=== PATIENT | male | born 1960 | race African-American/Black ===

== ENCOUNTER 2018-10-23 08:02 | Emergency (ER) | payer SELFPAY ==
[~2018-10-23] VITALS: Ht 182.9 cm; Wt 77.3 kg
[~2018-10-23 08:02] MED LIST: ACYC800T PO; AMLO10TA6 PO; CARV12.511 PO; HYDR-2761 PO; LISI-334 PO; METO25TA4 PO
[2018-10-23] MEDS ORDERED: IPRATRPIUM/ALBUTEROL 0.5/2.5MG 3 ML NEBU. NEB ONE (08:15)
--- NOTE | 2018-10-23 08:21 | PHYS DOC ---
Past Medical History Past Medical History: Hypertension Past Surgical History: Other Additional Past Surgical Histo: Rt.knee,rt.rotator cuff,lt.achilles,bilat wrist Alcohol Use: Occasionally Drug Use: None Adult General Chief Complaint Chief Complaint: DIZZY/LIGHT HEADED HPI HPI 58-year-old male presents to ER via POV for complaints of productive cough and shortness of air. Patient reports he is also had intermittent dizziness for the past few days. Patient states he has been out of his blood pressure medicine for the past few days as he is waiting for his insurance to change so he can go into a primary care physician. Patient states he was seen at [facility] 2 weeks ago for similar symptoms. Patient states he has not checked his temperature however has felt warm. Patient states he has had white phlegm with chest congestion. Patient denies GI issues. He shouldn't states he feels he has had swelling in his feet as his bruits feel tight. Patient denies recent travel. Patient reports he smokes less than a pack of cigarettes per day. Review of Systems Review of Systems Constitutional: Denies checking his temp. but has felt warm Eyes: Denies change in visual acuity, redness, or eye pain [] HENT: Denies nasal congestion or sore throat [] Respiratory: Reports prod. cough and SOA Cardiovascular: Reports chest congestion GI: Denies abdominal pain, nausea, vomiting, bloody stools or diarrhea [] : Denies dysuria or hematuria [] Musculoskeletal: Denies back/neck pain. Chronic leg pain no acute changes Integument: Denies rash or skin lesions [] Neurologic: Denies headache, focal weakness or sensory changes. Reports intermittent dizziness All other systems were reviewed and found to be within normal limits, except as documented in this note. Current Medications Current Medications Current Medications Medications (Trade) Dose Ordered Sig/Tanya Start Time Stop Time Status Last Admin Dose Admin Albuterol/ Ipratropium (Duoneb) 3 ml 1X ONCE 10/23/18 08:15 10/23/18 08:18 DC 10/23/18 08:23 3 ML Amlodipine Besylate (Norvasc) 5 mg 1X ONCE 10/23/18 10:45 10/23/18 10:46 DC 10/23/18 10:57 5 MG Prednisone (Prednisone) 50 mg 1X ONCE 10/23/18 10:15 10/23/18 10:16 DC 10/23/18 10:28 50 MG Sodium Chloride 1,000 ml @ 1,000 mls/hr 1X ONCE 10/23/18 10:15 10/23/18 10:15 DC Allergies Allergies Allergies Coded Allergies Type Severity Reaction Last Updated Verified lisinopril Allergy Severe Swelling 10/16/16 Yes hydrochlorothiazide Allergy Intermediate 10/16/16 Yes Physical Exam Physical Exam Constitutional: Well developed, well nourished, no acute distress, non-toxic appearance. Steady gait HENT: Normocephalic, atraumatic, oropharynx moist, nose normal. [] Eyes: Pupils equal, conjunctiva normal, no discharge. [] Neck: Normal range of motion, no tenderness, supple, no stridor. [] Cardiovascular:Heart rate regular rhythm, no murmur [] Lungs & Thorax: Upper bilat. rhonchi- no wheezing- diminished in bases. Resp. equal/nonlabored. Speaking in full sentences Abdomen: Bowel sounds normal, soft, no tenderness, no masses, no pulsatile masses. [] Skin: Warm, dry, no erythema, no rash. [] Back: No tenderness, no CVA tenderness. [] Extremities: No tenderness, no cyanosis, no clubbing, ROM intact, no edema. [] Neurologic: Alert and oriented X 3, normal motor function, normal sensory function, no focal deficits noted. [] Psychologic: Affect normal, judgement normal, mood normal. [] Current Patient Data Vital Signs Vital Signs Date Time Temp Pulse Resp B/P (MAP) Pulse Ox O2 Delivery O2 Flow Rate FiO2 10/23/18 10:57 74 179/99 10/23/18 10:45 23 95 10/23/18 08:25 Room Air 10/23/18 08:09 98.3 98.3 Lab Values Laboratory Tests Test 10/23/18 08:40 10/23/18 09:50 White Blood Count 3.6 x10^3/uL (4.0-11.0) L Red Blood Count 4.70 x10^6/uL (4.30-5.70) Hemoglobin 13.9 g/dL (13.0-17.5) Hematocrit 41.0 % (39.0-53.0) Mean Corpuscular Volume 87 fL (79-100) Mean Corpuscular Hemoglobin 30 pg (25-35) Mean Corpuscular Hemoglobin Concent 34 g/dL (31-37) Red Cell Distribution Width 22.6 % (11.5-14.5) H Platelet Count 279 x10^3/uL (140-400) Neutrophils (%) (Auto) 54 % (31-73) Lymphocytes (%) (Auto) 29 % (24-48) Monocytes (%) (Auto) 15 % (0-9) H Eosinophils (%) (Auto) 1 % (0-3) Basophils (%) (Auto) 1 % (0-3) Neutrophils # (Auto) 1.9 x10^3uL (1.8-7.7) Lymphocytes # (Auto) 1.0 x10^3/uL (1.0-4.8) Monocytes # (Auto) 0.5 x10^3/uL (0.0-1.1) Eosinophils # (Auto) 0.0 x10^3/uL (0.0-0.7) Basophils # (Auto) 0.0 x10^3/uL (0.0-0.2) Platelet Estimate Adequate (ADEQUATE) Large Platelets Occ Polychromasia Slight Anisocytosis Slight Ovalocytes Occ Sodium Level 140 mmol/L (136-145) Potassium Level 3.5 mmol/L (3.5-5.1) Chloride Level 102 mmol/L (98-107) Carbon Dioxide Level 23 mmol/L (21-32) Anion Gap 15 (6-14) H Blood Urea Nitrogen 11 mg/dL (8-26) Creatinine 0.9 mg/dL (0.7-1.3) Estimated GFR (Cockcroft-Gault) 104.5 BUN/Creatinine Ratio 12 (6-20) Glucose Level 105 mg/dL (70-99) H Lactic Acid Level 1.1 mmol/L (0.4-2.0) Calcium Level 9.4 mg/dL (8.5-10.1) Total Bilirubin 0.5 mg/dL (0.2-1.0) Aspartate Amino Transferase (AST) 37 U/L (15-37) Alanine Aminotransferase (ALT) 26 U/L (16-63) Alkaline Phosphatase 68 U/L (46-116) Troponin I Quantitative < 0.017 ng/mL (0.000-0.055) PE-Dlr-O-Type Natriuretic Peptide 122 pg/mL (0-124) Total Protein 7.2 g/dL (6.4-8.2) Albumin 3.3 g/dL (3.4-5.0) L Albumin/Globulin Ratio 0.8 (1.0-1.7) L Urine Collection Type Unknown Urine Color Lennie Urine Clarity Clear Urine pH 6.0 Urine Specific [place] >=1.030 Urine Protein 30 mg/dL (NEG-TRACE) Urine Glucose (UA) Negative mg/dL (NEG) Urine Ketones (Stick) 15 mg/dL (NEG) Urine Blood Moderate (NEG) Urine Nitrite Negative (NEG) Urine Bilirubin Small (NEG) Urine Urobilinogen Dipstick 1.0 mg/dL (0.2 mg/dL) Urine Leukocyte Esterase Trace (NEG) Urine RBC 6-10 /HPF (0-2) Urine WBC Occ /HPF (0-4) Urine Squamous Epithelial Cells Few /LPF Urine Bacteria Few /HPF (0-FEW) Urine Hyaline Casts Moderate /HPF Urine Mucus Marked /LPF Laboratory Tests 10/23/18 08:40 Laboratory Tests 10/23/18 08:40 Microbiology 10/23/18 Blood Culture - Preliminary, Resulted NO GROWTH AFTER 3 DAYS 10/23/18 Urine Culture - Final, Complete 10/23/18 Urine Culture Result 1 (CARLITA) - Final, Complete Microbiology 10/23/18 Blood Culture - Preliminary, Resulted NO GROWTH AFTER 1 DAY 10/23/18 Urine Culture - Final, Complete 10/23/18 Urine Culture Result 1 (CARLITA) - Final, Complete EKG EKG EKG obtained 10/23/[address] Millard Compared to EKG from 10/16/16 similar in comparison Sinus rhythm Lt axis deviation Rate 78 Radiology/Procedures Radiology/Procedures PROCEDURE: CHEST PA & LATERAL Examination: CHEST PA LATERAL History: COUGH AND SOB Comparison/Correlation: 10/12/2016 AP view of the chest Findings: PA and lateral views of chest were obtained. Heart size and pulmonary vasculature are normal. There is no pneumothorax or pleural effusion. Discoid atelectasis about the minor fissure is present. Mild thickening of the minor fissure noted. Nondistended left upper quadrant small bowel loops are present. Impression: No infiltrate. Linear discoid atelectasis about the minor fissure. Mild thickening of the minor fissure. Electronically signed by: Cedric José MD (10/23/2018 9:40 AM) [id number] DICTATED and SIGNED BY: GIORGIO DICKINSON MD DATE: 10/23/18 0938 Course & Med Decision Making Course & Med Decision Making Pertinent Labs and Imaging studies reviewed. (See chart for details) 0935: On reevaluation patient had no improvement and lung sounds following DuoNeb treatment. Patient continues to have rhonchi bilateral upper lobes. Pt is in no visible distress with equal nonlabored respirations. Labs pending. Chest xray with no acute findings. Orthostatic BP/HRs obtained- pt's BP remained similar with position changes his HR did go from 70 in supine position to 82 standing with RN reporting pt reported feeling dizzy with position change lasting briefly. IV flds given. 1040: Patient was evaluated in the ER for cough and shortness of air- test results were discussed with pt. EKG with no acute ST elevation/STEMI and troponin <0.017 BNP 122; WBCs at 3.6 no bands- which he has had similar results in previous records. Patient's chest x-ray was negative for acute findings. Patient has remained stable and nontoxic in appearance. O2 sat 97% on room air with heart rate 85 respirations 18. Patient does continue to have rhonchi bilateral upper lobes with equal nonlabored respirations. Patient has been hypertensive as he has been out of his amlodipine 5 mg for the past few weeks. Last BP 200/108. Dose of his amlodipine will be provided while in the ER and patient will be provided with prescription. Patient was educated on need to establish primary care physician and remain on his blood pressure medications as prescribed. Smoking cessation was discussed. With patient being daily smoker will place patient on prescription for Augmentin for bronchitis. Patient encouraged to increase fluid intake as he did have ketones in his urine. Patient had moderate blood and his UA with 30 protein-patient advised he should have this rechecked with primary care physician. Patient denies any urinary symptoms. Education provided on signs and symptoms to return to ER for. Discharge instructions were discussed. Will provide clinic and physician referral information with discharge paperwork. Patient was given dose of prednisone and will be provided with prescription for 4 additional days to start tomorrow. At time of discharge blood pressure 179/99 heart rate 73 RR 18 O2 saturation 97 % on room air. Pt's case and plan of care was discussed with Dr. Fiona Dominguez Disclaimer Alberto Disclaimer This electronic medical record was generated, in whole or in part, using a voice recognition dictation system. Departure Departure Impression: Primary Impression: Upper respiratory infection Additional Impressions: Elevated blood pressure reading Cough Disposition: HOME, SELF-CARE Condition: STABLE Referrals: NO PCP (PCP) Patient Instructions: Cough, Adult, Managing Your High Blood Pressure, Upper Respiratory Infection, Adult Additional Instructions: Drink plenty of water. Avoid missing doses of your blood pressure medication and take as prescribed. It is important for you to establish a primary care physician to care for your blood pressure issues. You did have moderate blood in your urinalysis and proteins which should be rechecked by your primary care physician. Avoid smoking. Start prednisone prescription tomorrow as you were given dose while in the ER. Scripts Amlodipine Besylate (AMLODIPINE BESYLATE) 5 Mg Tablet 5 MG PO DAILY, #20 TAB 0 Refills Prov: JENNIFER BECKMAN APRN 10/23/18 Prednisone (PREDNISONE) 50 Mg Tablet 50 MG PO DAILY, #4 TAB 0 Refills Start on 10/24/18 Prov: JENNIFER BECKMAN APRN 10/23/18 Amoxicillin/Potassium Clav (AUGMENTIN 875-125 TABLET) 1 Each Tablet 1 TAB PO BID, #14 TAB 0 Refills Prov: JENNIFER BECKMAN APRN 10/23/18 Problem Qualifiers JENNIFER BECKMAN APRN Oct 23, 2018 08:21 JOHNATHAN MILLARD MD Oct 27, 2018 06:12
[2018-10-23 08:51] LABS: BASO % 1 % (0-3); EOS % 1 % (0-3); HEMOGLOBIN 13.9 g/dL (13.0-17.5); LYMPH % 29 % (24-48); MEAN CORPUSCULAR HEMOGLOBIN 30 pg (25-35); MEAN CORPUSCULAR HGB CONC 34 g/dL (31-37); MEAN CORPUSCULAR VOLUME 87 fL (79-100); MONO # 0.5 x10^3/uL (0.0-1.1); MONO % 15 % (0-9); NEUT # 1.9 x10^3uL (1.8-7.7); NEUT % 54 % (31-73); PLATELET COUNT 279 x10^3/uL (140-400); RED CELL DISTRIBUTION WIDTH 22.6 % (11.5-14.5); WHITE BLOOD COUNT 3.6 x10^3/uL (4.0-11.0)
[2018-10-23 09:04] LABS: CALCIUM 9.4 mg/dL (8.5-10.1); CREATININE 0.9 mg/dL (0.7-1.3); GFR 104.5; POTASSIUM 3.5 mmol/L (3.5-5.1)
[2018-10-23 09:08] LABS: ALBUMIN 3.3 g/dL (3.4-5.0); ALBUMIN/GLOBULIN RATIO 0.8 (1.0-1.7); TOTAL BILIRUBIN 0.5 mg/dL (0.2-1.0); TOTAL PROTEIN 7.2 g/dL (6.4-8.2)
--- NOTE | 2018-10-23 09:09 | EKG ---
[facility] [address] [place] [address] Test Date: 2018-10-23 Test Time: 08:12:34 Pat Name: MARISABEL ADKINS Department: Room: Gender: M Seismograph Recorder: : 1960 Requested By: JENNIFER BECKMAN Order Number: [id number] Reading MD: Narayan Lee Measurements Intervals [place] Rate: 77 P: 35 NV: 134 QRS: -58 QRSD: 132 T: 12 QT: 428 QTc: 491 Interpretive Statements SINUS RHYTHM ABNORMAL LEFT AXIS DEVIATION LEFT ANTERIOR FASCICULAR BLOCK NON SPECIFIC INTRAVENTRICULAR BLOCK QRS(T) CONTOUR ABNORMALITY CANNOT RULE OUT ANTEROSEPTAL MYOCARDIAL DAMAGE ABNORMAL ECG Electronically Signed On 10-29-2018 11:50:47 [employer]ISTANT BU[employer]ER by Narayan Lee
--- NOTE | 2018-10-23 09:44 | RAD ---
Examination: CHEST PA LATERAL History: COUGH AND SOB Comparison/Correlation: 10/12/2016 AP view of the chest Findings: PA and lateral views of chest were obtained. Heart size and pulmonary vasculature are normal. There is no pneumothorax or pleural effusion. Discoid atelectasis about the minor fissure is present. Mild thickening of the minor fissure noted. Nondistended left upper quadrant small bowel loops are present. Impression: No infiltrate. Linear discoid atelectasis about the minor fissure. Mild thickening of the minor fissure. Electronically signed by: Cedric José MD (10/23/2018 9:40 AM) [id number]
[2018-10-23 09:52] LABS: ANISOCYTOSIS SLIGHT; OVALOCYTES OCC; PLT ESTIMATE ADEQUATE (ADEQUATE); POLYCHROMASIA SLIGHT
[2018-10-23] MEDS ORDERED: IV NORMAL SALINE 500ML BAG 500 ML IV ONE (10:00)
[2018-10-23 10:07] LABS: BILIRUBIN,URINE SMALL (NEG); CLARITY,URINE CLEAR; COLOR,URINE AMBER; NITRITE,URINE NEGATIVE (NEG); PROTEIN,URINE 30 mg/dL (NEG-TRACE)
[2018-10-23] MEDS ORDERED: IV NORMAL SALINE 1000ML BAG 1,000 ML IV ONE (10:15)
[2018-10-23] MEDS ORDERED: predniSONE 10 MG TABLET PO ONE (10:15)
[2018-10-23 10:29] LABS: BACTERIA,URINE FEW /HPF (0-FEW); SQUAMOUS EPITHELIAL CELL,UR FEW /LPF; WBC,URINE OCC /HPF (0-4)
[2018-10-23 10:30] LABS: HYALINE CASTS, URINE MODERATE /HPF
[2018-10-23] MEDS ORDERED: amLODIPine BESYLATE 5 MG TABLET PO ONE (10:45)
[2018-10-23] MEDS ORDERED: PRED50TA PO (10:52)
[2018-10-23] MEDS ORDERED: AMLO5TAB7 PO (10:52)
[2018-10-23] MEDS ORDERED: AMOX1TAB61 PO (10:52)
[2018-10-23 10:57] VITALS: BP 179/99
== END 2018-10-23 11:41 | disposition home or self-care (01) ==
LOC: ER 08:02
DX: J06.9 Acute upper respiratory infection, unspecified (principal); I10 Essential (primary) hypertension; F17.210 Nicotine dependence, cigarettes, uncomplicated; Z88.8 Allergy status to other drugs, medicaments and biological substances
CPT/HCPCS: 36415; 71046; 80053; 81001; 83605; 83880; 84484; 85025; 87040; 87086; 93005; 94640; 96360; 99284; J7040; J7512; J7620

== ENCOUNTER → 2019-03-31 | Outpatient (CLI) | payer OTHER ==
[~2019-03-31] MED LIST changes: +ALBUTEROL SULFATE 2.5 MG/3 ML NEBU. NEB ONE; -AMLO10TA6 PO; +AMLO10TA8 PO; +AMLO5TAB10 PO; +AMOX1TAB61 PO; +PRED50TA PO
== END | disposition home or self-care (01) ==
LOC: PF 10:49
PROVIDERS: ATTEND Family Medicine
DX: I11.0 Hypertensive heart disease with heart failure (principal); I50.23 Acute on chronic systolic (congestive) heart failure; J44.9 Chronic obstructive pulmonary disease, unspecified
CPT/HCPCS: 94060; 94640; 94729; J7613